=== PATIENT | male | born 1990 | race Caucasian/White ===

== ENCOUNTER 2022-12-10 15:44 | Outpatient (REF) | payer BC, SELFPAY ==
[2022-12-10 20:46] LABS: Calculated LDL 112 mg/dL (<100); Cholesterol 196 mg/dL (<200); HDL Cholesterol 59 mg/dL (40-60); Triglyceride 125 mg/dL (<150)
== END 2022-12-10 15:45 | disposition home or self-care (01) ==
LOC: NCHCN 15:44
PROVIDERS: PCP Internal Medicine; Visit Provider Internal Medicine
DX: Z00.00 Encounter for general adult medical examination without abnormal findings (principal); Z13.220 Encounter for screening for lipoid disorders
CPT/HCPCS: 80061

== ENCOUNTER 2025-04-13 18:49 | Outpatient (REF) | payer OTHER, SELFPAY ==
[2025-04-13 19:01] LABS: Abs Immature Grans 0.02 10^3/uL (0.0-0.06); HCT 50.3 % (40.0-50.0); HGB 16.9 g/dL (13.5-17.5); Immature Grans % 0.3 %; MCH 31.2 pg (27.0-33.0); MCHC 33.6 % (32.0-36.0); MCV 93 fL (80-95); MPV 9.9 fL (8.0-11.0); Platelet Count 329 10^3/uL (130-400); RBC 5.42 10^6/uL (4.36-5.78); RDW 11.9 % (11.8-14.1); RDW-SD 40.9 fL; WBC 6.75 10^3/uL (4.4-10.8)
[2025-04-13 19:22] LABS: ALT 32 U/L (16-63); AST 19 U/L (15-37); Albumin 4.3 g/dL (3.4-5.0); Alkaline Phosphatase 88 U/L (46-116); Anion Gap 6.8 mmol/L (3-11); BUN 14 mg/dL (7-18); Bilirubin, Total 0.5 mg/dL (0.2-1.0); CO2 31.2 mmol/L (21.0-32.0); Calcium 9.8 mg/dL (8.5-10.1); Calculated LDL 134 mg/dL (<100); Chloride 104 mmol/L (98-107); Cholesterol 211 mg/dL (<200); Estimated GFR 102.55 (mL/min/1.73m2); Glucose 104 mg/dL (74-106); HDL Cholesterol 57 mg/dL (>or=40); Potassium 4.0 mmol/L (3.5-5.1); Sodium 142 mmol/L (136-145); TSH (W/Ref FT4) 1.23 uIU/mL (0.36-3.74); Total Protein 7.8 g/dL (6.4-8.2); Triglyceride 102 mg/dL (<150)
== END 2025-04-13 18:50 | disposition home or self-care (01) ==
LOC: NCHCN 18:49
PROVIDERS: PCP Internal Medicine; Visit Provider Physician Assistant
DX: Z13.220 Encounter for screening for lipoid disorders (principal); Z13.29 Encounter for screening for other suspected endocrine disorder
CPT/HCPCS: 80053; 80061; 84443; 85025